=== PATIENT | male | born 1940 | race Caucasian/White ===

== ENCOUNTER → 2017-01-29 | Outpatient (CLI) | payer MEDICARE, MEDICAID ==
[~2017-01-29] MED LIST: 'TENORMIN50 MG PO; ASPIRIN CHEWABL81 M1 PO; CELEBREX100 MG PO; CELEBREX200 MG PO; Carafate1 GM PO; D-1000 185 MG-11 TAB PO; FUROSEMIDE40 MG PO; GAVISCON REGULA1 CT1 PO; ISOSORBIDE DINI30 MG PO; ISOSORBIDE DINITRATE 5 MG PO; LEVAQUIN750 M1 PO; METOPROLOL SUCC50 M2 PO; OMEPRAZOLE D/R20 MG PO; PLAVIX75 MG PO; POTASSIUM CHLO20 MEQ PO; PREDNISONE10 MG PO; PRILOSEC10 MG PO; SIMVASTATIN40 MG PO
== END | disposition home or self-care (01) ==
LOC: US 02:20
DX: R10.10 Upper abdominal pain, unspecified (principal)

== ENCOUNTER → 2017-02-17 | Outpatient (CLI) | payer MEDICARE, MEDICAID | END | disposition home or self-care (01) | LOC: RAD 02-10 08:00 → RAD/SH 08:40 → RAD 09:00 | DX: R13.14 Dysphagia, pharyngoesophageal phase (principal); R10.10 Upper abdominal pain, unspecified ==

== ENCOUNTER → 2017-03-18 | Outpatient (CLI) | payer MEDICARE, MEDICAID | END | disposition home or self-care (01) | LOC: RAD 11:35 | DX: M17.0 Bilateral primary osteoarthritis of knee (principal); M11.262 Other chondrocalcinosis, left knee; M11.261 Other chondrocalcinosis, right knee ==

== ENCOUNTER → 2017-04-01 | Outpatient (CLI) | payer MEDICARE, MEDICAID | END | disposition home or self-care (01) | LOC: MRI 00:26 | DX: S83.242A Other tear of medial meniscus, current injury, left knee, initial encounter (principal); X58.XXXA Exposure to other specified factors, initial encounter; Y93.89 Activity, other specified; Y92.89 Other specified places as the place of occurrence of the external cause; Y99.8 Other external cause status ==

== ENCOUNTER → 2017-05-10 | Outpatient (CLI) | payer MEDICARE, MEDICAID | END | disposition home or self-care (01) | LOC: ORTHO 02:04 | DX: M17.12 Unilateral primary osteoarthritis, left knee (principal); M25.462 Effusion, left knee ==

== ENCOUNTER 2017-05-30 13:37 | Emergency (ER) | payer MEDICARE, MEDICAID ==
[2017-05-30 13:41] VITALS: BP 140/80
[2017-05-30] MEDS ORDERED: HYDROCODONE BIT1 T11 PO (14:27)
== END 2017-05-30 14:47 | disposition home or self-care (01) ==
LOC: ED 13:37
DX: S83.232A Complex tear of medial meniscus, current injury, left knee, initial encounter (principal); Z88.6 Allergy status to analgesic agent; Z79.899 Other long term (current) drug therapy; Z87.891 Personal history of nicotine dependence; X58.XXXA Exposure to other specified factors, initial encounter; Y93.9 Activity, unspecified; Y92.9 Unspecified place or not applicable; Y99.9 Unspecified external cause status

== ENCOUNTER → 2017-06-16 | Outpatient (CLI) | payer MEDICARE, MEDICAID ==
[~2017-06-16] MED LIST changes: +HYDROCODONE BIT1 T11 PO
[2017-06-16 10:46] LABS: BILIRUBIN NEGATIVE (NEGATIVE); BLOOD NEGATIVE (NEGATIVE); CLARITY SL CLOUDY (CLEAR); COLOR YELLOW (YELLOW); GLUCOSE NEGATIVE (NEGATIVE); KETONE NEGATIVE (NEGATIVE); LEUKO ESTERASE TRACE (NEGATIVE); NITRITE NEGATIVE (NEGATIVE); PROTEIN NEGATIVE (NEGATIVE); SPECIFIC GRAVITY 1.015 (1.005-1.030)
[2017-06-16 10:49] LABS: BASO # 0.1 10*3/uL (0.0-0.1); BASO % 0.9 % (0.0-1.0); EOS # 0.2 10*3/uL (0.0-0.4); EOS % 2.5 % (1.0-4.0); HEMATOCRIT 43.6 % (42.0-52.0); HEMOGLOBIN 14.1 g/dl (14.0-18.0); IG # 0.1 10*3/uL (0.0-0.1); LYMPH # 2.3 10*3/uL (1.3-4.4); LYMPH % 23.6 % (27.0-41.0); MEAN CELL VOLUME 89.9 fl (80.0-94.0); MEAN CORPUSCULAR HGB 29.1 pg (27.0-31.0); MEAN CORPUSCULAR HGB CONC 32.3 g/dl (33.0-37.0); MEAN PLATELET VOLUME 9.9 fl (9.6-12.3); MONO # 1.1 10*3/uL (0.1-1.0); MONO % 11.8 % (3.0-9.0); NEUT # 5.9 10*3/uL (2.3-7.9); NEUT % 60.6 % (47.0-73.0); PLATELET COUNT AUTOMATED 329 10*3/uL (130-400); RED BLOOD COUNT 4.85 10*6/uL (4.50-5.90); RED CELL DISTRI WIDTH 14.4 % (0-14.5); WHITE BLOOD COUNT 9.7 10*3/uL (4.8-10.8)
[2017-06-16 11:11] LABS: BACTERIA 1+; WBC 0-2 wbc/hpf (0-5)
[2017-06-16 11:18] LABS: ALBUMIN 3.6 gm/dl (3.1-4.5); BUN 17 mg/dl (7-24); CARBON DIOXIDE 29 mmol/L (21-32); CHLORIDE 108 mmol/L (98-107); EST GLOM FILT AFRICAN AMERICAN > 60 ml/min; GLUCOSE 114 mg/dL (65-99); SGOT/AST 18 IU/L (3-35); SGPT/ALT 20 U/L (12-78); SODIUM 139 mmol/L (136-145)
[2017-06-16 11:20] LABS: ALKALINE PHOSPHATASE 94 U/L (45-117); BILIRUBIN, TOTAL 0.7 mg/dl (0.2-1.0); TOTAL PROTEIN 6.4 gm/dL (6.4-8.2)
== END | disposition home or self-care (01) ==
LOC: LAB 09:17
PROVIDERS: Orthopaedic Surgery
DX: Z01.818 Encounter for other preprocedural examination (principal); S83.242A Other tear of medial meniscus, current injury, left knee, initial encounter; M94.262 Chondromalacia, left knee; Z87.891 Personal history of nicotine dependence; X58.XXXA Exposure to other specified factors, initial encounter; Y93.89 Activity, other specified; Y92.89 Other specified places as the place of occurrence of the external cause; Y99.8 Other external cause status

== ENCOUNTER → 2017-07-13 | Day surgery (SDC) | payer MEDICARE, MEDICAID ==
[2017-06-22 09:47] VITALS: BP 166/97
[~2017-07-13] MED LIST changes: +CIPRO PO; +NORCO 5-325 TA1 EACH PO; +ZOFRAN4 MG PO
[2017-07-13 09:15] VITALS: BP 116/74
[2017-07-13 12:22] VITALS: BP 156/87
[2017-07-13 12:35] VITALS: BP 149/95
[2017-07-13 12:47] VITALS: BP 152/87
[2017-07-13 13:05] VITALS: BP 151/88
[2017-07-13 13:20] VITALS: BP 148/88
== END | disposition home or self-care (01) ==
LOC: SDC 06-10 08:45
DX: S83.282A Other tear of lateral meniscus, current injury, left knee, initial encounter (principal); S83.242A Other tear of medial meniscus, current injury, left knee, initial encounter; K21.9 Gastro-esophageal reflux disease without esophagitis; I11.0 Hypertensive heart disease with heart failure; I50.9 Heart failure, unspecified; J44.9 Chronic obstructive pulmonary disease, unspecified; E78.5 Hyperlipidemia, unspecified; Z95.5 Presence of coronary angioplasty implant and graft; Z80.9 Family history of malignant neoplasm, unspecified; Z82.49 Family history of ischemic heart disease and other diseases of the circulatory system; F17.210 Nicotine dependence, cigarettes, uncomplicated; X58.XXXA Exposure to other specified factors, initial encounter; Y99.8 Other external cause status; Y93.89 Activity, other specified; Y92.89 Other specified places as the place of occurrence of the external cause; Z98.890 Other specified postprocedural states

== ENCOUNTER → 2017-09-28 | Outpatient (CLI) | payer MEDICARE, MEDICAID | END | disposition home or self-care (01) | LOC: US 01:38 | DX: N28.1 Cyst of kidney, acquired (principal); I10 Essential (primary) hypertension ==

== ENCOUNTER → 2017-10-07 | Outpatient (CLI) | payer MEDICARE, MEDICAID | END | disposition home or self-care (01) | LOC: CT 03:18 | DX: Z01.818 Encounter for other preprocedural examination (principal); M17.12 Unilateral primary osteoarthritis, left knee; K40.90 Unilateral inguinal hernia, without obstruction or gangrene, not specified as recurrent; M25.462 Effusion, left knee; M71.22 Synovial cyst of popliteal space [Baker], left knee; M11.262 Other chondrocalcinosis, left knee; M16.12 Unilateral primary osteoarthritis, left hip; Z96.652 Presence of left artificial knee joint ==

== ENCOUNTER → 2017-11-24 | Outpatient (CLI) | payer MEDICARE ==
[~2017-11-24] MED LIST changes: +OMEPRAZOLE40 MG PO
== END ==
LOC: CARD 02:11
DX: I51.7 Cardiomegaly (principal)

== ENCOUNTER → 2017-12-01 | Outpatient (CLI) | payer MEDICARE ==
[~2017-12-01] MED LIST changes: +ADVAIR 250/501 EA INH; +ASPIRIN81 M1 PO; +COMBIVENT RESPIM4 GM INH; +METOPROLOL TART50 M1 PO; +MIRALAX119 GM PO; +NAPROXEN500 MG PO
== END | disposition home or self-care (01) ==
LOC: CARD 00:27
DX: I25.10 Atherosclerotic heart disease of native coronary artery without angina pectoris (principal); R93.1 Abnormal findings on diagnostic imaging of heart and coronary circulation

== ENCOUNTER 2017-12-14 03:30 | Inpatient (IN) | payer MEDICARE ==
[~2017-12-14] VITALS: Ht 175 cm
[2017-12-14] VITALS (9 sets, daily range): BP systolic 88–129; BP diastolic 31–86
[~2017-12-14 03:30] MED LIST changes: -ADVAIR 250/501 EA INH; -ASPIRIN81 M1 PO; -COMBIVENT RESPIM4 GM INH; -METOPROLOL TART50 M1 PO; -MIRALAX119 GM PO; -NAPROXEN500 MG PO
[2017-12-14] MEDS ORDERED: ASPIRIN81 M1 PO (11:29)
[2017-12-14] MEDS ORDERED: MIRALAX119 GM PO (11:30)
[2017-12-14] MEDS ORDERED: ADVAIR 250/501 EA INH (11:31)
[2017-12-14] MEDS ORDERED: COMBIVENT RESPIM4 GM INH (11:31)
[2017-12-14] MEDS ORDERED: NAPROXEN500 MG PO (11:31)
[2017-12-14] MEDS ORDERED: METOPROLOL TART50 M1 PO (11:33)
[2017-12-14 18:50] LABS: BILIRUBIN NEGATIVE (NEGATIVE); BLOOD 3+ (NEGATIVE); CLARITY CLOUDY (CLEAR); COLOR YELLOW (YELLOW); GLUCOSE NEGATIVE (NEGATIVE); KETONE TRACE (NEGATIVE); LEUKO ESTERASE TRACE (NEGATIVE); NITRITE NEGATIVE (NEGATIVE); SPECIFIC GRAVITY >= 1.030 (1.005-1.030); UROBILINOGEN 0.2 E.U./dl (0.2-1.0)
[2017-12-14 19:09] LABS: BACTERIA 1+; RBC TNTC rbc/hpf (0-2)
[2017-12-15] VITALS: BP 139/77
[2017-12-15 04:34] VITALS: BP 134/85
[2017-12-15 07:18] LABS: BASO # 0.1 10*3/uL (0.0-0.1); BASO % 0.5 % (0.0-1.0); EOS # 0.2 10*3/uL (0.0-0.4); EOS % 1.4 % (1.0-4.0); HEMATOCRIT 37.3 % (42.0-52.0); HEMOGLOBIN 12.2 g/dl (14.0-18.0); LYMPH # 1.4 10*3/uL (1.3-4.4); LYMPH % 13.7 % (27.0-41.0); MEAN CELL VOLUME 91.2 fl (80.0-94.0); MEAN CORPUSCULAR HGB 29.8 pg (27.0-31.0); MEAN CORPUSCULAR HGB CONC 32.7 g/dl (33.0-37.0); MEAN PLATELET VOLUME 10.1 fl (9.6-12.3); MONO # 1.4 10*3/uL (0.1-1.0); MONO % 13.9 % (3.0-9.0); NEUT # 7.3 10*3/uL (2.3-7.9); NEUT % 70.1 % (47.0-73.0); PLATELET COUNT AUTOMATED 259 10*3/uL (130-400); RED BLOOD COUNT 4.09 10*6/uL (4.50-5.90); WHITE BLOOD COUNT 10.4 10*3/uL (4.8-10.8)
[2017-12-15 07:59] LABS: ACT PARTIAL THROMBO TIME 27.1 SECONDS (20.8-31.5)
[2017-12-15 08:00] VITALS: BP 136/75
[2017-12-15 08:20] LABS: PHOSPHOROUS 2.3 mg/dL (2.5-4.9); THYROID STIM HORMONE (HS) 0.529 uIU/ml (0.358-4.75)
[2017-12-15 08:53] LABS: VITAMIN D, 25-HYDROXY 10.7 ng/mL (30-100)
[2017-12-15 12:00] VITALS: BP 140/76
[2017-12-15 16:00] VITALS: BP 113/62
[2017-12-15 20:00] VITALS: BP 135/67
[2017-12-16] VITALS: BP 131/69
[2017-12-16 06:17] LABS: HEMATOCRIT 36.5 % (42.0-52.0); HEMOGLOBIN 11.9 g/dl (14.0-18.0); MEAN CELL VOLUME 90.6 fl (80.0-94.0); MEAN CORPUSCULAR HGB 29.5 pg (27.0-31.0); MEAN CORPUSCULAR HGB CONC 32.6 g/dl (33.0-37.0); MEAN PLATELET VOLUME 9.6 fl (9.6-12.3); PLATELET COUNT AUTOMATED 243 10*3/uL (130-400); RED BLOOD COUNT 4.03 10*6/uL (4.50-5.90); RED CELL DISTRI WIDTH 13.8 % (0-14.5); WHITE BLOOD COUNT 9.4 10*3/uL (4.8-10.8)
[2017-12-16 06:45] LABS: BUN 10 mg/dl (7-24); CHLORIDE 103 mmol/L (98-107); CREATININE 0.79 mg/dL (0.70-1.30); POTASSIUM 3.8 mmol/L (3.5-5.1); SODIUM 141 mmol/L (136-145)
[2017-12-16 07:00] VITALS: BP 130/78
[2017-12-16 07:37] LABS: PLATELET SUFFICIENCY NORMAL (NORMAL); TOTAL CELLS COUNTED 100 #CELLS
[2017-12-16 08:00] VITALS: BP 135/85
[2017-12-16 12:00] VITALS: BP 105/66
[2017-12-16 16:00] VITALS: BP 118/68
[2017-12-16 20:00] VITALS: BP 131/73
[2017-12-17] VITALS: BP 129/83
[2017-12-17 07:44] LABS: BASO % 0.5 % (0.0-1.0); EOS # 0.2 10*3/uL (0.0-0.4); EOS % 2.6 % (1.0-4.0); HEMATOCRIT 34.3 % (42.0-52.0); HEMOGLOBIN 11.5 g/dl (14.0-18.0); LYMPH # 1.4 10*3/uL (1.3-4.4); LYMPH % 18.1 % (27.0-41.0); MEAN CELL VOLUME 89.3 fl (80.0-94.0); MEAN CORPUSCULAR HGB 29.9 pg (27.0-31.0); MEAN CORPUSCULAR HGB CONC 33.5 g/dl (33.0-37.0); MEAN PLATELET VOLUME 10.2 fl (9.6-12.3); MONO # 1.2 10*3/uL (0.1-1.0); MONO % 15.5 % (3.0-9.0); NEUT # 4.8 10*3/uL (2.3-7.9); NEUT % 62.6 % (47.0-73.0); PLATELET COUNT AUTOMATED 259 10*3/uL (130-400); RED BLOOD COUNT 3.84 10*6/uL (4.50-5.90); RED CELL DISTRI WIDTH 13.8 % (0-14.5); WHITE BLOOD COUNT 7.7 10*3/uL (4.8-10.8)
[2017-12-17 08:00] VITALS: BP 113/70
[2017-12-17 08:15] LABS: ALBUMIN 2.8 gm/dl (3.1-4.5); BUN 13 mg/dl (7-24); CHLORIDE 102 mmol/L (98-107); POTASSIUM 3.2 mmol/L (3.5-5.1); SGPT/ALT 15 U/L (12-78); SODIUM 140 mmol/L (136-145)
[2017-12-17 08:18] LABS: ALKALINE PHOSPHATASE 78 U/L (45-117); CREATININE 0.67 mg/dL (0.70-1.30); SGOT/AST 21 IU/L (3-35); TOTAL PROTEIN 6.1 gm/dL (6.4-8.2)
[2017-12-17 12:00] VITALS: BP 100/60
[2017-12-17] MEDS ORDERED: VITAMIN D5000 UNIT PO (15:08)
[2017-12-17] MEDS ORDERED: B12100 MC1 PO (15:08)
[2017-12-17] MEDS ORDERED: NATURE'S BLEND F1 MG PO (15:08)
[2017-12-17] MEDS ORDERED: K-TAB10 MEQ PO (15:18)
== END 2017-12-17 15:41 | disposition home health service (06) | DRG 470 ==
LOC: SDC 03:30 → 5E 07:38 → SDC 11:00 → 5E 12:26
PROVIDERS: Hospitalist; Orthopaedic Surgery
PROC: 0SRD0J9 Replacement of Left Knee Joint with Synthetic Substitute, Cemented, Open Approach (ICD-10-PCS; principal; 2017-12-14)
DX: M17.12 Unilateral primary osteoarthritis, left knee (principal); D64.9 Anemia, unspecified; R31.9 Hematuria, unspecified; J43.9 Emphysema, unspecified; M81.0 Age-related osteoporosis without current pathological fracture; I25.10 Atherosclerotic heart disease of native coronary artery without angina pectoris; K21.9 Gastro-esophageal reflux disease without esophagitis; E53.8 Deficiency of other specified B group vitamins; E78.5 Hyperlipidemia, unspecified; E55.9 Vitamin D deficiency, unspecified; D72.810 Lymphocytopenia; E87.6 Hypokalemia; D72.821 Monocytosis (symptomatic); Z87.891 Personal history of nicotine dependence; Z79.51 Long term (current) use of inhaled steroids; Z79.82 Long term (current) use of aspirin; Z79.899 Other long term (current) drug therapy; Z95.5 Presence of coronary angioplasty implant and graft; Z88.8 Allergy status to other drugs, medicaments and biological substances

== ENCOUNTER 2017-12-20 00:47 | Emergency (ER) | payer MEDICARE ==
[~2017-12-20] VITALS: Ht 175.2 cm; Wt 83.9 kg
[~2017-12-20 00:47] MED LIST changes: +ADVAIR 250/501 EA INH; +ASPIRIN81 M1 PO; +B12100 MC1 PO; +COMBIVENT RESPIM4 GM INH; +K-TAB10 MEQ PO; +METOPROLOL TART50 M1 PO; +MIRALAX119 GM PO; +NAPROXEN500 MG PO; +NATURE'S BLEND F1 MG PO; +VITAMIN D5000 UNIT PO
[2017-12-20 00:55] VITALS: BP 144/80
== END 2017-12-20 02:27 | disposition home or self-care (01) ==
LOC: ED 00:47
DX: Z96.652 Presence of left artificial knee joint (principal); K21.9 Gastro-esophageal reflux disease without esophagitis; J45.909 Unspecified asthma, uncomplicated; I25.10 Atherosclerotic heart disease of native coronary artery without angina pectoris; E78.5 Hyperlipidemia, unspecified; E87.6 Hypokalemia; J44.1 Chronic obstructive pulmonary disease with (acute) exacerbation; Z88.5 Allergy status to narcotic agent; Z79.82 Long term (current) use of aspirin; Z79.899 Other long term (current) drug therapy

== ENCOUNTER → 2018-01-25 | Outpatient (CLI) | payer MEDICARE | END | disposition home or self-care (01) | LOC: ORTHO | DX: Z01.818 Encounter for other preprocedural examination (principal); M25.462 Effusion, left knee; Z96.652 Presence of left artificial knee joint; Z98.890 Other specified postprocedural states ==

== ENCOUNTER → 2018-02-02 | Day surgery (SDC) | payer MEDICARE ==
[~2018-02-02] VITALS: Ht 172.7 cm; Wt 79.4 kg
--- NOTE | ~2018-02-02 | O ---
[place], [place] OPERATIVE NOTE NAME: DENISSE MAYER UNIT #: [id number] ROOM: DOCTOR: KELLIE LUKE MD BIRTHDATE: [birth year] DOS: 02/02/2018 HISTORY OF PRESENT ILLNESS: A 78-year-old patient who presented with dyspepsia, undergoing investigation on omeprazole 40 mg daily. ALLERGIES: DILAUDID. FAMILY HISTORY: Noncontributory. PAST SURGICAL HISTORY: Left total knee. PAST MEDICAL HISTORY: Hypercholesterolemia, hypertension. SOCIAL HISTORY: Nonsmoker, nonalcohol consumer. CT scan pending. PROCEDURE: Today's procedure part of investigation is panendoscopy plus biopsy. PREMEDICATION: Versed and Diprivan. SCOPE: Olympus forward-viewing gastroscope Q10 video. REPORT: After putting the patient in left lateral position and application of lubricant to the scope, the scope was entered. Thereafter, under direct visualization, advanced through the length of esophagus without difficulty. Gastric pouch was entered. Evidence of gastritis was seen. Bile reflux noticed. Duodenal bulb, second and third part within normal limits. The patient extubated, tolerated procedure well. IMPRESSION: Gastritis, status post biopsy. Very small hiatal hernia. PLAN AND DISCUSSION: Omeprazole [address] scan of the abdomen is pending. Further workup in progress. Follow up routinely with you in office, p.r.n. visit with us in GI Clinic. Antireflux measure with elevation of the head of the bed 6 inch all time. Clinical reassessment. Thank you very much indeed. [place], [place] OPERATIVE NOTE NAME: DENISSE MAYER UNIT #: [id number] ROOM: DOCTOR: KELLIE LUKE MD BIRTHDATE: [birth year] KELLIE LUKE MD CM:OPRECORD:OPERATIVE NOTE 1205 [id number] VERONICA LUKE MD 02/02/18 1412 interface
[2018-02-02 11:57] VITALS: BP 138/86
[2018-02-02 12:03] VITALS: BP 107/65
[2018-02-02 12:18] VITALS: BP 137/78
[2018-02-02 12:30] VITALS: BP 141/74
== END | disposition home or self-care (01) ==
LOC: SDC 01-27 13:15
DX: K29.50 Unspecified chronic gastritis without bleeding (principal); E78.00 Pure hypercholesterolemia, unspecified; K44.9 Diaphragmatic hernia without obstruction or gangrene; K21.9 Gastro-esophageal reflux disease without esophagitis; I50.9 Heart failure, unspecified; I11.0 Hypertensive heart disease with heart failure; Z95.828 Presence of other vascular implants and grafts; I25.10 Atherosclerotic heart disease of native coronary artery without angina pectoris; J43.9 Emphysema, unspecified; Z98.890 Other specified postprocedural states; Z80.9 Family history of malignant neoplasm, unspecified; Z82.49 Family history of ischemic heart disease and other diseases of the circulatory system; F17.210 Nicotine dependence, cigarettes, uncomplicated

== ENCOUNTER → 2018-02-09 | Outpatient (CLI) | payer MEDICARE | END | disposition home or self-care (01) | LOC: ORTHO 00:24 | DX: Z48.89 Encounter for other specified surgical aftercare (principal); Z96.652 Presence of left artificial knee joint ==

== ENCOUNTER → 2018-03-02 | Outpatient (CLI) | payer MEDICARE ==
[~2018-03-02] MED LIST changes: +GAVISCON ES TA1 EACH PO
== END | disposition home or self-care (01) ==
LOC: ORTHO 01:56 → LAB 09:00 → ORTHO 16:33
DX: M25.062 Hemarthrosis, left knee (principal); Z96.652 Presence of left artificial knee joint

== ENCOUNTER → 2018-03-04 | Day surgery (SDC) | payer MEDICARE ==
[~2018-03-04] VITALS: Ht 172.7 cm; Wt 79.4 kg
--- NOTE | ~2018-03-04 | O ---
[place], [place] OPERATIVE NOTE NAME: DENISSE MAYER UNIT #: [id number] ROOM: DOCTOR: KELLIE LUKE MD BIRTHDATE: [birth year] DOS: 03/04/2018 GASTROENDOSCOPIC REPORT HISTORY OF PRESENT ILLNESS: The patient presented with chief complaint of history of colonic polyp, undergoing investigation. PAST MEDICAL HISTORY: Associated with hyperlipidemia, hypertension, and gastritis. ALLERGIES: DILAUDID. FAMILY HISTORY: Noncontributory. PAST SURGICAL HISTORY: Left total knee. SOCIAL HISTORY: Nonsmoker, nonalcohol consumer. PROCEDURE: Today's procedure part of investigation is colonoscopy plus piecemeal polypectomy. PREMEDICATION: Versed and propofol. SCOPE: Olympus forward-viewing colonoscope 10L video. REPORT: After putting the patient in left lateral position and application of lubricant to the scope, the scope was introduced. Thereafter, under direct visualization, advanced through the length of colon without difficulty. Base of the cecum explored, appendiceal orifice identified, ileocecal valve was defined. Cecal sessile small polyp with piecemeal polypectomy removed. Air was suctioned out. Rare diverticulosis in sigmoid colon identified as well as diverticulosis isolated at the cecum was identified, photographed. Air was suctioned out. The patient was extubated, tolerated the procedure well. IMPRESSION: Diverticulosis with presence of diverticulum in the cecum as well as a sessile polypoid lesion in the cecum, status post piecemeal polypectomy. PLAN: High fiber fruit diet. ACTIVITY: Ad soraya. FOLLOWUP: Routinely with you in office, p.r.n. visit with us in GI Clinic. Thank you very much indeed for your kind referral. [place], [place] OPERATIVE NOTE NAME: DENISSE MAYER Taye UNIT #: [id number] ROOM: DOCTOR: KELLIE LUKE MD BIRTHDATE: [birth year] KELLIE LUKE MD CM:OPRECORD:OPERATIVE NOTE 1215 [id number] KELLIE LUKE MD 03/10/18 1646 interface
[2018-03-04 10:30] VITALS: BP 131/74
[2018-03-04 12:12] VITALS: BP 102/64
[2018-03-04 12:30] VITALS: BP 122/70
[2018-03-04 12:41] VITALS: BP 137/84
[2018-03-04 12:42] VITALS: BP 137/84
== END | disposition home or self-care (01) ==
LOC: SDC 02-28 08:45
DX: K57.30 Diverticulosis of large intestine without perforation or abscess without bleeding (principal); D12.0 Benign neoplasm of cecum; Z86.010 Personal history of colon polyps; E78.5 Hyperlipidemia, unspecified; Z88.8 Allergy status to other drugs, medicaments and biological substances; I11.0 Hypertensive heart disease with heart failure; I50.9 Heart failure, unspecified; K21.9 Gastro-esophageal reflux disease without esophagitis; J44.9 Chronic obstructive pulmonary disease, unspecified; Z79.899 Other long term (current) drug therapy; Z95.5 Presence of coronary angioplasty implant and graft; I25.10 Atherosclerotic heart disease of native coronary artery without angina pectoris; Z98.890 Other specified postprocedural states

== ENCOUNTER → 2018-03-07 | Outpatient (CLI) | payer MEDICARE ==
[2018-03-07 17:05] LABS: ALBUMIN 3.1 gm/dl (3.1-4.5)
== END | disposition home or self-care (01) ==
LOC: LAB 02:46 → ORTHO 02:46
PROVIDERS: Orthopaedic Surgery
DX: E46 Unspecified protein-calorie malnutrition (principal)

== ENCOUNTER → 2018-04-12 | Outpatient (CLI) | payer MEDICARE ==
[2018-04-12 11:09] LABS: BILIRUBIN NEGATIVE (NEGATIVE); BLOOD NEGATIVE (NEGATIVE); COLOR YELLOW (YELLOW); GLUCOSE NEGATIVE (NEGATIVE); KETONE TRACE (NEGATIVE); LEUKO ESTERASE NEGATIVE (NEGATIVE); NITRITE NEGATIVE (NEGATIVE); SPECIFIC GRAVITY 1.025 (1.005-1.030); UROBILINOGEN 0.2 E.U./dl (0.2-1.0)
[2018-04-12 11:18] LABS: BASO # 0.1 10*3/uL (0.0-0.1); BASO % 0.8 % (0.0-1.0); EOS # 0.3 10*3/uL (0.0-0.4); EOS % 2.5 % (1.0-4.0); HEMOGLOBIN 12.8 g/dl (14.0-18.0); LYMPH # 1.6 10*3/uL (1.3-4.4); LYMPH % 15.6 % (27.0-41.0); MEAN CELL VOLUME 86.2 fl (80.0-94.0); MEAN CORPUSCULAR HGB 26.3 pg (27.0-31.0); MEAN CORPUSCULAR HGB CONC 30.5 g/dl (33.0-37.0); MEAN PLATELET VOLUME 9.1 fl (9.6-12.3); MONO # 1.3 10*3/uL (0.1-1.0); MONO % 12.4 % (3.0-9.0); NEUT % 68.2 % (47.0-73.0); PLATELET COUNT AUTOMATED 497 10*3/uL (130-400); RED BLOOD COUNT 4.87 10*6/uL (4.50-5.90); RED CELL DISTRI WIDTH 15.8 % (0-14.5); WHITE BLOOD COUNT 10.3 10*3/uL (4.8-10.8)
[2018-04-12 11:37] LABS: ALBUMIN 3.4 gm/dl (3.1-4.5); ALKALINE PHOSPHATASE 118 U/L (45-117); BUN 20 mg/dl (7-24); CHLORIDE 106 mmol/L (98-107); CREATININE 0.79 mg/dL (0.70-1.30); POTASSIUM 3.9 mmol/L (3.5-5.1); SGOT/AST 18 IU/L (3-35); SGPT/ALT 17 U/L (12-78); SODIUM 143 mmol/L (136-145); TOTAL PROTEIN 7.7 gm/dL (6.4-8.2)
[2018-04-12 11:48] LABS: CLARITY SL CLOUDY (CLEAR)
[2018-04-12 11:51] LABS: BACTERIA TRACE; CALCIUM OXALATE CRYSTALS 1+; MUCOUS 3+; RBC 0-2 rbc/hpf (0-2)
== END | disposition home or self-care (01) ==
LOC: LAB 09:29
PROVIDERS: Orthopaedic Surgery
DX: Z01.818 Encounter for other preprocedural examination (principal); J98.4 Other disorders of lung; J44.9 Chronic obstructive pulmonary disease, unspecified; I10 Essential (primary) hypertension

== ENCOUNTER → 2018-04-21 | Outpatient (CLI) | payer MEDICARE | END | disposition home or self-care (01) | LOC: LAB 07:43 | DX: M17.12 Unilateral primary osteoarthritis, left knee (principal) ==

== ENCOUNTER → 2018-04-27 | Outpatient (CLI) | payer MEDICARE | END | disposition home or self-care (01) | LOC: ORTHO 00:01 | DX: M25.062 Hemarthrosis, left knee (principal) ==

== ENCOUNTER → 2018-05-03 | Outpatient (CLI) | payer MEDICARE ==
[2018-05-03 13:58] LABS: BASO # 0.1 10*3/uL (0.0-0.1); BASO % 0.7 % (0.0-1.0); EOS # 0.2 10*3/uL (0.0-0.4); EOS % 1.9 % (1.0-4.0); HEMATOCRIT 35.3 % (42.0-52.0); HEMOGLOBIN 10.6 g/dl (14.0-18.0); LYMPH % 16.5 % (27.0-41.0); MEAN CELL VOLUME 88.3 fl (80.0-94.0); MEAN CORPUSCULAR HGB 26.5 pg (27.0-31.0); MEAN PLATELET VOLUME 9.2 fl (9.6-12.3); MONO # 1.3 10*3/uL (0.1-1.0); MONO % 10.8 % (3.0-9.0); NEUT # 8.3 10*3/uL (2.3-7.9); NEUT % 69.4 % (47.0-73.0); PLATELET COUNT AUTOMATED 479 10*3/uL (130-400); RED CELL DISTRI WIDTH 18.3 % (0-14.5)
== END | disposition home or self-care (01) ==
LOC: LAB 08:04 → ORTHO 08:04
PROVIDERS: Orthopaedic Surgery
DX: M25.062 Hemarthrosis, left knee (principal)

== ENCOUNTER 2018-05-16 17:47 | Emergency (ER) | payer MEDICARE ==
[~2018-05-16] VITALS: Ht 172.7 cm; Wt 74.8 kg
[2018-05-16 18:38] LABS: BASO # 0.1 10*3/uL (0.0-0.1); BASO % 0.8 % (0.0-1.0); EOS # 0.1 10*3/uL (0.0-0.4); EOS % 1.4 % (1.0-4.0); LYMPH # 1.4 10*3/uL (1.3-4.4); LYMPH % 15.3 % (27.0-41.0); MEAN CELL VOLUME 85.5 fl (80.0-94.0); MEAN CORPUSCULAR HGB 26.1 pg (27.0-31.0); MEAN CORPUSCULAR HGB CONC 30.6 g/dl (33.0-37.0); MEAN PLATELET VOLUME 8.9 fl (9.6-12.3); MONO # 1.1 10*3/uL (0.1-1.0); MONO % 12.2 % (3.0-9.0); NEUT # 6.5 10*3/uL (2.3-7.9); PLATELET COUNT AUTOMATED 436 10*3/uL (130-400); RED BLOOD COUNT 4.21 10*6/uL (4.50-5.90); RED CELL DISTRI WIDTH 17.1 % (0-14.5); WHITE BLOOD COUNT 9.2 10*3/uL (4.8-10.8)
[2018-05-16 18:58] LABS: ALBUMIN 3.4 gm/dl (3.1-4.5); ALKALINE PHOSPHATASE 120 U/L (45-117); BUN 16 mg/dl (7-24); CHLORIDE 106 mmol/L (98-107); CREATININE 0.85 mg/dL (0.70-1.30); POTASSIUM 3.3 mmol/L (3.5-5.1); SGOT/AST 6 IU/L (3-35); SGPT/ALT 11 U/L (12-78); SODIUM 141 mmol/L (136-145); TOTAL PROTEIN 7.2 gm/dL (6.4-8.2)
[2018-05-16 21:35] VITALS: BP 128/67
== END 2018-05-16 21:40 | disposition short-term general hospital (02) ==
LOC: ED 17:47
PROVIDERS: Nurse Practitioner Family
DX: M00.9 Pyogenic arthritis, unspecified (principal); I25.10 Atherosclerotic heart disease of native coronary artery without angina pectoris; J44.9 Chronic obstructive pulmonary disease, unspecified; K21.9 Gastro-esophageal reflux disease without esophagitis; E78.5 Hyperlipidemia, unspecified; M81.0 Age-related osteoporosis without current pathological fracture; Z87.891 Personal history of nicotine dependence; Z88.8 Allergy status to other drugs, medicaments and biological substances; Z79.899 Other long term (current) drug therapy; Z79.82 Long term (current) use of aspirin

== ENCOUNTER → 2018-11-03 | Outpatient (CLI) | payer OTHER | END | disposition home or self-care (01) | LOC: US 14:49 | DX: M79.89 Other specified soft tissue disorders (principal) ==

== ENCOUNTER → 2021-01-10 | Outpatient (CLI) | payer MEDICARE | END | disposition home or self-care (01) | LOC: COVID19 10:02 | PROVIDERS: ATTEND Physician Assistant | DX: Z01.818 Encounter for other preprocedural examination (principal); Z20.822 Contact with and (suspected) exposure to COVID-19 ==

== ENCOUNTER → 2021-11-13 | Outpatient (CLI) | payer MEDICARE ==
[2021-11-13 14:41] LABS: CREATININE 1.15 mg/dL (0.70-1.30)
== END | disposition home or self-care (01) ==
LOC: LAB 14:07 → CT 15:00
PROVIDERS: Radiology Diagnostic Radiology; ATTEND Radiology Radiation Oncology
DX: M50.31 Other cervical disc degeneration, high cervical region (principal); M45.2 Ankylosing spondylitis of cervical region

== ENCOUNTER 2021-11-15 16:55 | Emergency (ER) | payer MEDICARE ==
[~2021-11-15] VITALS: Ht 172.7 cm; Wt 77.1 kg
[2021-11-15 17:03] VITALS: BP 128/64
[2021-11-15 17:24] LABS: BASO # 0.1 10*3/uL (0.0-0.1); BASO % 0.9 % (0.0-1.0); EOS # 0.3 10*3/uL (0.0-0.4); EOS % 4.5 % (1.0-4.0); LYMPH # 1.6 10*3/uL (1.3-4.4); LYMPH % 24.2 % (27.0-41.0); MEAN CELL VOLUME 91.9 fl (80.0-94.0); MEAN CORPUSCULAR HGB 29.4 pg (27.0-31.0); MEAN PLATELET VOLUME 9.5 fl (9.6-12.3); MONO # 0.8 10*3/uL (0.1-1.0); MONO % 11.3 % (3.0-9.0); NEUT % 58.8 % (47.0-73.0); PLATELET COUNT AUTOMATED 298 10*3/uL (130-400); RED BLOOD COUNT 4.46 10*6/uL (4.50-5.90); RED CELL DISTRI WIDTH 13.5 % (0-14.5); WHITE BLOOD COUNT 6.7 10*3/uL (4.8-10.8)
[2021-11-15 17:42] LABS: ALBUMIN 3.5 gm/dl (3.1-4.5); ALKALINE PHOSPHATASE 108 U/L (45-117); BUN 18 mg/dl (7-24); CHLORIDE 111 mmol/L (98-107); CREATININE 0.81 mg/dL (0.70-1.30); SGOT/AST 11 IU/L (3-35); SGPT/ALT 17 U/L (12-78); SODIUM 143 mmol/L (136-145); TOTAL PROTEIN 6.5 gm/dL (6.4-8.2)
== END 2021-11-15 18:52 | disposition home or self-care (01) ==
LOC: ED 16:55
PROVIDERS: Student in an Organized Health Care Education/Training Program
DX: R04.2 Hemoptysis (principal); Z88.8 Allergy status to other drugs, medicaments and biological substances; Z79.899 Other long term (current) drug therapy; Z79.82 Long term (current) use of aspirin; Z87.891 Personal history of nicotine dependence

== ENCOUNTER → 2022-03-10 | Outpatient (CLI) | payer MEDICARE | END | disposition home or self-care (01) | LOC: LAB 12:00 | PROVIDERS: ATTEND Internal Medicine Gastroenterology | DX: K58.0 Irritable bowel syndrome with diarrhea (principal) ==

== ENCOUNTER → 2022-03-11 | Outpatient (CLI) | payer MEDICARE ==
[2022-03-11 09:27] LABS: HEMATOCRIT 42.3 % (42.0-52.0); MEAN CELL VOLUME 89.8 fl (80.0-94.0); MEAN CORPUSCULAR HGB 28.5 pg (27.0-31.0); MEAN CORPUSCULAR HGB CONC 31.7 g/dl (33.0-37.0); MEAN PLATELET VOLUME 9.1 fl (9.6-12.3); RED BLOOD COUNT 4.71 10*6/uL (4.50-5.90); RED CELL DISTRI WIDTH 13.3 % (0-14.5); WHITE BLOOD COUNT 6.9 10*3/uL (4.8-10.8)
[2022-03-11 09:52] LABS: ALKALINE PHOSPHATASE 120 U/L (45-117); BUN 18 mg/dl (7-24); CHLORIDE 110 mmol/L (98-107); CREATININE 0.76 mg/dL (0.70-1.30); POTASSIUM 3.7 mmol/L (3.5-5.1); SGOT/AST 11 IU/L (3-35); SGPT/ALT 17 U/L (12-78); SODIUM 142 mmol/L (136-145)
== END | disposition home or self-care (01) ==
LOC: LAB 08:45
PROVIDERS: Nurse Practitioner Family; ATTEND Internal Medicine Gastroenterology
DX: K58.0 Irritable bowel syndrome with diarrhea (principal)

== ENCOUNTER → 2022-10-14 | Outpatient (CLI) | payer MEDICARE | END | disposition home or self-care (01) | LOC: MRI 08:28 | PROVIDERS: ATTEND Physician Assistant | DX: I67.82 Cerebral ischemia (principal); H53.2 Diplopia ==

== ENCOUNTER → 2022-10-21 | Outpatient (CLI) | payer MEDICARE | END | disposition home or self-care (01) | LOC: LAB 08:08 | PROVIDERS: ATTEND Physician Assistant | DX: H53.2 Diplopia (principal) ==

== ENCOUNTER → 2022-11-30 | Outpatient (CLI) | payer MEDICARE | END | disposition home or self-care (01) | LOC: US 03:51 | PROVIDERS: ATTEND Internal Medicine | DX: H34.211 Partial retinal artery occlusion, right eye (principal); I65.23 Occlusion and stenosis of bilateral carotid arteries; E78.5 Hyperlipidemia, unspecified ==

== ENCOUNTER → 2023-04-14 | Outpatient (CLI) | payer MEDICARE ==
[2023-04-14 12:17] LABS: HEMATOCRIT 40.4 % (42.0-52.0); MEAN CELL VOLUME 91.2 fl (80.0-94.0); MEAN CORPUSCULAR HGB 29.8 pg (27.0-31.0); MEAN CORPUSCULAR HGB CONC 32.7 g/dl (33.0-37.0); MEAN PLATELET VOLUME 9.2 fl (9.6-12.3); RED BLOOD COUNT 4.43 10*6/uL (4.50-5.90); RED CELL DISTRI WIDTH 13.7 % (0-14.5); WHITE BLOOD COUNT 8.4 10*3/uL (4.8-10.8)
== END | disposition home or self-care (01) ==
LOC: LAB 12:03
PROVIDERS: ATTEND Physician Assistant
DX: K21.9 Gastro-esophageal reflux disease without esophagitis (principal); I48.91 Unspecified atrial fibrillation; K92.2 Gastrointestinal hemorrhage, unspecified; G89.29 Other chronic pain; Z96.652 Presence of left artificial knee joint

== ENCOUNTER → 2023-06-04 | Outpatient (CLI) | payer MEDICARE | END | disposition home or self-care (01) | LOC: US 01:40 | PROVIDERS: ATTEND Internal Medicine Gastroenterology | DX: N28.1 Cyst of kidney, acquired (principal) ==

== ENCOUNTER 2023-06-17 17:24 | Emergency (ER) | payer MEDICARE ==
[~2023-06-17] VITALS: Ht 172.7 cm; Wt 79.8 kg
[2023-06-17 17:41] VITALS: BP 103/71
[2023-06-17] MEDS ORDERED: HYDROCODONE-AC1 EAC1 PO (17:45)
[2023-06-17] MEDS ORDERED: ONDANSETRON HYDR4 MG PO (17:45)
[2023-06-17] MEDS ORDERED: PROPAFENONE HC150 MG PO (17:46)
[2023-06-17] MEDS ORDERED: OMEPRAZOLE40 MG PO (17:46)
[2023-06-17] MEDS ORDERED: ATORVASTATIN CA80 M1 PO (17:46)
[2023-06-17] MEDS ORDERED: CARVEDILOL6.25 MG PO (17:46)
[2023-06-17] MEDS ORDERED: POTASSIUM CHLO20 ME4 PO (17:46)
[2023-06-17] MEDS ORDERED: FUROSEMIDE20 M1 PO (17:47)
[2023-06-17] MEDS ORDERED: XARELTO10 MG PO (17:47)
[2023-06-17 18:21] LABS: BASO # 0.1 10*3/uL (0.0-0.1); BASO % 0.7 % (0.0-1.0); EOS # 0.3 10*3/uL (0.0-0.4); EOS % 4.3 % (1.0-4.0); HEMATOCRIT 40.3 % (42.0-52.0); LYMPH # 1.7 10*3/uL (1.3-4.4); LYMPH % 22.3 % (27.0-41.0); MEAN CORPUSCULAR HGB 29.6 pg (27.0-31.0); MEAN CORPUSCULAR HGB CONC 32.5 g/dl (33.0-37.0); MEAN PLATELET VOLUME 9.7 fl (9.6-12.3); MONO % 12.7 % (3.0-9.0); NEUT # 4.5 10*3/uL (2.3-7.9); NEUT % 59.7 % (47.0-73.0); PLATELET COUNT AUTOMATED 275 10*3/uL (130-400); RED BLOOD COUNT 4.43 10*6/uL (4.50-5.90); RED CELL DISTRI WIDTH 13.6 % (0-14.5); WHITE BLOOD COUNT 7.5 10*3/uL (4.8-10.8)
[2023-06-17 18:32] LABS: INTERNATIONAL NORM RATIO 1.1 (2.0-3.5)
[2023-06-17 18:43] LABS: ALKALINE PHOSPHATASE 122 U/L (46-116); BUN 13 mg/dl (9-23); CHLORIDE 105 mmol/L (98-107); SGPT/ALT 11 U/L (10-49); TOTAL PROTEIN 6.3 gm/dL (6.0-8.0)
[2023-06-17] MEDS ORDERED: AMOX-CLAV 875-1 EACH PO ×2 (18:51→19:17)
== END 2023-06-17 19:02 | disposition home or self-care (01) ==
LOC: ED 17:24
PROVIDERS: Internal Medicine
DX: R04.2 Hemoptysis (principal); J18.9 Pneumonia, unspecified organism; K21.9 Gastro-esophageal reflux disease without esophagitis; I11.0 Hypertensive heart disease with heart failure; I50.9 Heart failure, unspecified; J44.9 Chronic obstructive pulmonary disease, unspecified; I25.10 Atherosclerotic heart disease of native coronary artery without angina pectoris; E78.5 Hyperlipidemia, unspecified; Z88.5 Allergy status to narcotic agent; Z98.890 Other specified postprocedural states; Z95.5 Presence of coronary angioplasty implant and graft; Z96.652 Presence of left artificial knee joint; Z87.891 Personal history of nicotine dependence

== ENCOUNTER → 2023-12-31 | Outpatient (CLI) | payer MEDICARE ==
[~2023-12-31] MED LIST changes: +AMOX-CLAV 875-1 EACH PO; +ATORVASTATIN CA80 M1 PO; +CARVEDILOL6.25 MG PO; +FUROSEMIDE20 M1 PO; +HYDROCODONE-AC1 EAC1 PO; +ONDANSETRON HYDR4 MG PO; +POTASSIUM CHLO20 ME4 PO; +PROPAFENONE HC150 MG PO; +XARELTO10 MG PO
== END | disposition home or self-care (01) ==
LOC: US 01:44
PROVIDERS: ATTEND Physician Assistant
DX: I70.213 Atherosclerosis of native arteries of extremities with intermittent claudication, bilateral legs (principal); I25.10 Atherosclerotic heart disease of native coronary artery without angina pectoris; I10 Essential (primary) hypertension; E11.9 Type 2 diabetes mellitus without complications; M79.605 Pain in left leg; M79.604 Pain in right leg; Z95.828 Presence of other vascular implants and grafts

== ENCOUNTER 2024-07-13 14:49 | Inpatient (IN) | payer MEDICARE ==
[~2024-07-13] VITALS: Ht 167.6 cm; Wt 75.9 kg
[2024-07-13 15:10] VITALS: BP 138/114
[2024-07-13 15:30] VITALS: BP 110/67
[2024-07-13] MEDS ORDERED: Albuterol Sulf/Ipratropium 3 ML VIAL NEB ONE (15:30)
[2024-07-13] MEDS ORDERED: methylPREDNISolone sod succ 125 MG VIAL IV ONE (15:30)
[2024-07-13] MEDS ORDERED: ISOSORBIDE DINIT5 M2 PO (15:33)
[2024-07-13] MEDS ORDERED: PROPAFENONE HY150 MG PO (15:33)
[2024-07-13] MEDS ORDERED: LASIX20 MG PO (15:34)
[2024-07-13] MEDS ORDERED: LIPITOR80 MG PO (15:34)
[2024-07-13] MEDS ORDERED: Ondansetron4 MG PO (15:35)
[2024-07-13] MEDS ORDERED: K-TAB20 MEQ PO (15:35)
[2024-07-13] MEDS ORDERED: HYDROCODONE-AC1 EAC1 PO (15:36)
[2024-07-13] MEDS ORDERED: MECLIZINE HYD12.5 MG PO (15:36)
[2024-07-13 15:43] LABS: BASO # 0.1 10*3/uL (0.0-0.1); BASO % 0.8 % (0.0-1.0); EOS # 0.1 10*3/uL (0.0-0.4); EOS % 1.1 % (1.0-4.0); HEMATOCRIT 42.2 % (42.0-52.0); LYMPH # 0.7 10*3/uL (1.3-4.4); LYMPH % 11.1 % (27.0-41.0); MEAN CELL VOLUME 90.8 fl (80.0-94.0); MEAN CORPUSCULAR HGB 29.2 pg (27.0-31.0); MEAN CORPUSCULAR HGB CONC 32.2 g/dl (33.0-37.0); MEAN PLATELET VOLUME 9.3 fl (9.6-12.3); MONO # 0.7 10*3/uL (0.1-1.0); MONO % 10.6 % (3.0-9.0); NEUT # 4.9 10*3/uL (2.3-7.9); NEUT % 76.1 % (47.0-73.0); PLATELET COUNT AUTOMATED 268 10*3/uL (130-400); RED BLOOD COUNT 4.65 10*6/uL (4.50-5.90); RED CELL DISTRI WIDTH 13.6 % (0-14.5); WHITE BLOOD COUNT 6.5 10*3/uL (4.8-10.8)
[2024-07-13 16:02] LABS: BUN 14 mg/dl (9-23); CHLORIDE 107 mmol/L (98-107); POTASSIUM 3.5 mmol/L (3.4-5.1)
[2024-07-13] MEDS ORDERED: Ceftriaxone Sodium 1 GM/10 ML SYR IV ONE (17:20)
[2024-07-13] MEDS ORDERED: AZITHROMYCIN 250 ML IV ONE (17:20)
[2024-07-13 17:41] VITALS: BP 109/70
[2024-07-13] MEDS ORDERED: ACETAMINOPHEN 650 MG SUPP R PRN (18:30)
[2024-07-13] MEDS ORDERED: BISACODYL 10 MG SUPP R PRN (18:30)
[2024-07-13] MEDS ORDERED: ACETAMINOPHEN 325 MG TAB PO PRN (18:30)
[2024-07-13] MEDS ORDERED: Magnesium Hydroxide 30 ML UDC PO PRN (18:30)
[2024-07-13] MEDS ORDERED: Ondansetron Hydrochloride 4 MG/2 ML VIAL IV PRN (18:30)
[2024-07-13] MEDS ORDERED: BISACODYL 5 MG TAB PO PRN (18:30)
[2024-07-13] MEDS ORDERED: IMDUR SA30 MG PO (19:39)
[2024-07-13] MEDS ORDERED: Meclizine Hydrochloride 12.5 MG TAB PO PRN (19:40)
[2024-07-13 20:00] VITALS: BP 109/70
[2024-07-13] MEDS ORDERED: Acetaminophen/Hydrocodone 5 MG/325 MG TABLET PO PRN (21:20)
[2024-07-13] MEDS ORDERED: ATORVASTATIN CALCIUM 80 MG TAB PO SCH (22:00)
[2024-07-13] MEDS ORDERED: Propafenone Hydrochloride 150 MG TAB PO SCH (22:00)
[2024-07-14] VITALS: BP 107/72
[2024-07-14] MEDS ORDERED: OMEPRAZOLE 20 MG CAP PO SCH (06:00)
[2024-07-14 06:17] LABS: BASO % 0.2 % (0.0-1.0); HEMATOCRIT 42.6 % (42.0-52.0); LYMPH # 0.6 10*3/uL (1.3-4.4); LYMPH % 13.9 % (27.0-41.0); MEAN CELL VOLUME 90.3 fl (80.0-94.0); MEAN CORPUSCULAR HGB 29.7 pg (27.0-31.0); MEAN CORPUSCULAR HGB CONC 32.9 g/dl (33.0-37.0); MONO # 0.2 10*3/uL (0.1-1.0); MONO % 4.4 % (3.0-9.0); NEUT # 3.7 10*3/uL (2.3-7.9); NEUT % 81.3 % (47.0-73.0); PLATELET COUNT AUTOMATED 283 10*3/uL (130-400); RED BLOOD COUNT 4.72 10*6/uL (4.50-5.90); RED CELL DISTRI WIDTH 13.6 % (0-14.5); WHITE BLOOD COUNT 4.6 10*3/uL (4.8-10.8)
[2024-07-14 06:25] LABS: ALKALINE PHOSPHATASE 130 U/L (46-116); BUN 13 mg/dl (9-23); CHLORIDE 108 mmol/L (98-107); FREE T4 1.34 ng/dl (0.89-1.76); POTASSIUM 4.1 mmol/L (3.4-5.1); SGPT/ALT 12 U/L (5-49); TOTAL PROTEIN 6.3 gm/dL (6.0-8.0)
[2024-07-14] MEDS ORDERED: Propafenone Hydrochloride 150 MG TAB PO SCH (08:00)
[2024-07-14] MEDS ORDERED: ISOSORBIDE MONONITRATE 30 MG TAB PO SCH ×2 (08:00→10:00)
[2024-07-14 08:16] VITALS: BP 136/77
[2024-07-14] MEDS ORDERED: POTASSIUM CHLORIDE 20 MEQ TAB PO SCH (10:00)
[2024-07-14] MEDS ORDERED: FUROSEMIDE 20 MG TAB PO SCH (10:00)
[2024-07-14] MEDS ORDERED: Enoxaparin Sodium 40 MG/0.4 ML SYR SC SCH (10:00)
[2024-07-14 12:00] VITALS: BP 117/69
[2024-07-14] MEDS ORDERED: Ampicillin Sodium/Sulbactam 1.5 GM in SODIUM CHLORIDE 0.9% 50 ML IV SCH (12:00)
[2024-07-14] MEDS ORDERED: RIVAROXABAN 20 MG TAB PO SCH ×2 (18:00→22:00)
[2024-07-14 20:00] VITALS: BP 157/70
[2024-07-15] VITALS: BP 137/65
[2024-07-15 06:02] LABS: HEMATOCRIT 39.6 % (42.0-52.0); MEAN CELL VOLUME 89.4 fl (80.0-94.0); MEAN CORPUSCULAR HGB 29.6 pg (27.0-31.0); MEAN CORPUSCULAR HGB CONC 33.1 g/dl (33.0-37.0); MEAN PLATELET VOLUME 9.9 fl (9.6-12.3); PLATELET COUNT AUTOMATED 277 10*3/uL (130-400); RED BLOOD COUNT 4.43 10*6/uL (4.50-5.90); RED CELL DISTRI WIDTH 13.8 % (0-14.5)
[2024-07-15 06:04] LABS: MANUAL DIFF REFLEX YES
[2024-07-15 06:59] LABS: BUN 19 mg/dl (9-23); CHLORIDE 109 mmol/L (98-107); POTASSIUM 3.4 mmol/L (3.4-5.1)
[2024-07-15 07:25] LABS: PLATELET SUFFICIENCY NORMAL (NORMAL); TOTAL CELLS COUNTED 100 #CELLS
[2024-07-15 08:00] VITALS: BP 155/72
[2024-07-15] MEDS ORDERED: AMOX-CLAV 875-1 EACH PO ×2 (11:20→13:08)
[2024-07-15 12:00] VITALS: BP 137/67
== END 2024-07-15 13:38 | disposition home or self-care (01) | DRG 177 ==
LOC: ED 14:49 → EDHOLD 17:53 → 4E 07-14 14:17
PROVIDERS: Internal Medicine; Nurse Practitioner Family; Student in an Organized Health Care Education/Training Program; ADMIT Family Medicine; ATTEND Family Medicine
DX: J69.0 Pneumonitis due to inhalation of food and vomit (principal); I50.31 Acute diastolic (congestive) heart failure; I48.20 Chronic atrial fibrillation, unspecified; K21.9 Gastro-esophageal reflux disease without esophagitis; J43.8 Other emphysema; J44.9 Chronic obstructive pulmonary disease, unspecified; M81.0 Age-related osteoporosis without current pathological fracture; E78.2 Mixed hyperlipidemia; I25.10 Atherosclerotic heart disease of native coronary artery without angina pectoris; E55.9 Vitamin D deficiency, unspecified; D64.9 Anemia, unspecified; Z88.6 Allergy status to analgesic agent; Z87.891 Personal history of nicotine dependence; Z95.5 Presence of coronary angioplasty implant and graft

== ENCOUNTER → 2024-08-10 | Outpatient (CLI) | payer MEDICARE ==
[~2024-08-10] MED LIST changes: +IMDUR SA30 MG PO; +ISOSORBIDE DINIT5 M2 PO; +K-TAB20 MEQ PO; +LASIX20 MG PO; +LIPITOR80 MG PO; +MECLIZINE HYD12.5 MG PO; +Ondansetron4 MG PO; +PROPAFENONE HY150 MG PO
== END | disposition home or self-care (01) ==
LOC: US 01:41
PROVIDERS: ATTEND Internal Medicine Gastroenterology
DX: N28.1 Cyst of kidney, acquired (principal); K76.0 Fatty (change of) liver, not elsewhere classified; R11.0 Nausea

== ENCOUNTER → 2024-09-11 | Outpatient (CLI) | payer MEDICARE | END | disposition home or self-care (01) | LOC: NM 07:00 | PROVIDERS: ATTEND Internal Medicine Gastroenterology | DX: R11.0 Nausea (principal) ==

== ENCOUNTER 2025-03-17 08:59 | Emergency (ER) | payer MEDICARE ==
[~2025-03-17] VITALS: Ht 172.7 cm; Wt 73.9 kg
[2025-03-17 09:11] VITALS: BP 127/75
[2025-03-17 09:53] LABS: BASO % 0.5 % (0.0-1.0); EOS # 0.3 10*3/uL (0.0-0.4); EOS % 3.6 % (1.0-4.0); HEMATOCRIT 37.3 % (42.0-52.0); MEAN CELL VOLUME 90.5 fl (80.0-94.0); MEAN CORPUSCULAR HGB 28.2 pg (27.0-31.0); MEAN CORPUSCULAR HGB CONC 31.1 g/dl (33.0-37.0); MEAN PLATELET VOLUME 8.9 fl (9.6-12.3); MONO % 12.2 % (3.0-9.0); NEUT # 5.8 10*3/uL (2.3-7.9); NEUT % 68.6 % (47.0-73.0); PLATELET COUNT AUTOMATED 374 10*3/uL (130-400); RED BLOOD COUNT 4.12 10*6/uL (4.50-5.90); RED CELL DISTRI WIDTH 14.4 % (0-14.5); WHITE BLOOD COUNT 8.4 10*3/uL (4.8-10.8)
[2025-03-17 10:11] LABS: BUN 14 mg/dl (9-23); CHLORIDE 105 mmol/L (98-107)
[2025-03-17] MEDS ORDERED: VISTARIL25 MG PO (10:27)
== END 2025-03-17 10:31 | disposition home or self-care (01) ==
LOC: ED 08:59
PROVIDERS: Internal Medicine
DX: L29.9 Pruritus, unspecified (principal); F41.9 Anxiety disorder, unspecified; Z88.6 Allergy status to analgesic agent; Z79.899 Other long term (current) drug therapy; Z98.890 Other specified postprocedural states; Z96.652 Presence of left artificial knee joint; Z87.891 Personal history of nicotine dependence

== ENCOUNTER 2025-08-04 10:11 | Inpatient (IN) | payer MEDICARE, MEDICAID ==
[2025-08-04] VITALS (8 sets, daily range): BP systolic 93–120; BP diastolic 53–88
[~2025-08-04] VITALS: Ht 172.7 cm; Wt 72.6 kg
[~2025-08-04 10:11] MED LIST changes: +DOXYCYCLINE HY100 M3 PO; +VISTARIL25 MG PO
[2025-08-04] MEDS ORDERED: Ondansetron Hydrochloride 4 MG/2 ML VIAL IV ONE (10:45)
[2025-08-04] MEDS ORDERED: SODIUM CHLORIDE 0.9% 500 ML IV ONE ×3 (10:45→13:10)
[2025-08-04 11:06] LABS: MEAN CELL VOLUME 88.1 fl (80.0-94.0); MEAN CORPUSCULAR HGB 27.7 pg (27.0-31.0); MEAN PLATELET VOLUME 9.5 fl (9.6-12.3); NUCLEATED RED BLOOD CELL 0.0 % (0.0-0.0); NUCLEATED RED BLOOD CELL 0.0 10*3/uL (0.0-0.0); PLATELET COUNT AUTOMATED 400 10*3/uL (130-400); RED CELL DISTRI WIDTH 14.5 % (0-14.5)
[2025-08-04 11:07] LABS: MANUAL DIFF REFLEX YES
[2025-08-04 11:29] LABS: BUN 15 mg/dl (9-23)
[2025-08-04 11:33] LABS: BASOPHILS 3 % (0-1); PLATELET SUFFICIENCY NORMAL (NORMAL)
[2025-08-04 11:34] LABS: VACUOLATION OF NEUTROPHILS SLIGHT
[2025-08-04] MEDS ORDERED: SODIUM CHLORIDE 0.9% 100 ML BAG IV ONE (12:30)
[2025-08-04] MEDS ORDERED: IOHEXOL 350 MG/ML 100 ML VIAL IV ONE ×2 (12:30→12:58)
[2025-08-04] MEDS ORDERED: SODIUM CHLORIDE 0.9% 100 ML IV ONE (12:58)
[2025-08-04] MEDS ORDERED: Cefepime Hydrochloride 2 GM in SODIUM CHLORIDE 0.9% 50 ML IV ONE (13:50)
[2025-08-04] MEDS ORDERED: BISACODYL 10 MG SUPP R PRN (16:25)
[2025-08-04] MEDS ORDERED: ACETAMINOPHEN 325 MG TAB PO PRN (16:25)
[2025-08-04] MEDS ORDERED: Acetaminophen/Hydrocodone 5 MG/325 MG TABLET PO PRN (16:25)
[2025-08-04] MEDS ORDERED: Ondansetron Hydrochloride 4 MG/2 ML VIAL IV PRN (16:25)
[2025-08-04] MEDS ORDERED: BISACODYL 5 MG TAB PO PRN (16:25)
[2025-08-04] MEDS ORDERED: ACETAMINOPHEN 650 MG SUPP R PRN (16:25)
[2025-08-04] MEDS ORDERED: MIRALAX17 GM PO (16:30)
[2025-08-04] MEDS ORDERED: ANORO ELLIPTA1 EACH INH (16:31)
[2025-08-04] MEDS ORDERED: Albuterol Sulf/Ipratropium 3 ML VIAL NEB SCH (16:40)
[2025-08-04] MEDS ORDERED: HEPARIN SODIUM 250 ML IV SCH (16:40)
[2025-08-04] MEDS ORDERED: ASPIRIN, CHEWABLE 81 MG TAB PO ONE (17:15)
[2025-08-04 17:51] LABS: BILIRUBIN Negative (Negative); BLOOD Negative (Negative); CLARITY Clear (Clear); COLOR Yellow (Yellow); KETONE Negative (Negative); LEUKO ESTERASE Negative (Negative); NITRITE Negative (Negative); PH 6.5 (4.5-8.0); SPECIFIC GRAVITY >= 1.030 (1.001-1.030); UROBILINOGEN 1.0 E.U./dl (0.0-1.0)
[2025-08-04] MEDS ORDERED: FUROSEMIDE 20 MG/2 ML VIAL IV SCH (18:00)
[2025-08-04 18:04] LABS: BACTERIA TRACE; WBC 0-2 wbc/hpf (0-5)
[2025-08-04] MEDS ORDERED: ANORO ELLIPTA INH SCH (22:00)
[2025-08-04] MEDS ORDERED: ATORVASTATIN CALCIUM 80 MG TAB PO SCH (22:00)
[2025-08-04] MEDS ORDERED: GUAIFENESIN 600 MG TAB ER PO SCH (22:00)
[2025-08-04] MEDS ORDERED: Propafenone Hydrochloride 150 MG TAB PO SCH (22:00)
[2025-08-05] VITALS: BP 114/68
[2025-08-05] MEDS ORDERED: OMEPRAZOLE 20 MG CAP PO SCH (06:00)
[2025-08-05 06:04] LABS: MEAN CELL VOLUME 89.9 fl (80.0-94.0); MEAN CORPUSCULAR HGB 27.5 pg (27.0-31.0); MEAN PLATELET VOLUME 9.4 fl (9.6-12.3); NUCLEATED RED BLOOD CELL 0.0 % (0.0-0.0); NUCLEATED RED BLOOD CELL 0.0 10*3/uL (0.0-0.0); PLATELET COUNT AUTOMATED 337 10*3/uL (130-400); RED CELL DISTRI WIDTH 14.6 % (0-14.5)
[2025-08-05 06:12] LABS: MANUAL DIFF REFLEX YES
[2025-08-05 06:17] LABS: BUN 11 mg/dl (9-23); FREE T4 1.17 ng/dl (0.89-1.76); LDL CHOLESTEROL 37 mg/dL (9-159); SGPT/ALT 11 U/L (5-49)
[2025-08-05 06:44] LABS: BASOPHILS 1 % (0-1); PLATELET SUFFICIENCY NORMAL (NORMAL)
[2025-08-05 08:00] VITALS: BP 122/89
[2025-08-05 08:05] LABS: VITAMIN D, 25-HYDROXY 17.4 ng/mL (30-100)
[2025-08-05] MEDS ORDERED: ISOSORBIDE MONONITRATE 30 MG TAB PO SCH (10:00)
[2025-08-05] MEDS ORDERED: ATORVASTATIN CALCIUM 80 MG TAB PO SCH ×2 (10:00→22:00)
[2025-08-05] MEDS ORDERED: ASPIRIN, CHEWABLE 81 MG TAB PO SCH (10:00)
[2025-08-05] MEDS ORDERED: AZITHROMYCIN 250 ML IV SCH (10:00)
[2025-08-05] MEDS ORDERED: MAGNESIUM SULFATE 50 ML IV ONE (11:00)
[2025-08-05] MEDS ORDERED: POTASSIUM CHLORIDE 20 MEQ TAB PO ONE (11:00)
[2025-08-05 12:00] VITALS: BP 102/77
[2025-08-05] MEDS ORDERED: DILTIAZEM HCL IN NACL,ISO-OSM 100 ML IV SCH (12:00)
[2025-08-05 14:33] VITALS: BP 112/52
[2025-08-05 16:00] VITALS: BP 96/62
[2025-08-05 20:00] VITALS: BP 118/51
[2025-08-06] VITALS (9 sets, daily range): BP systolic 70–146; BP diastolic 38–69
[2025-08-06 06:19] LABS: BUN 15 mg/dl (9-23)
[2025-08-06 06:30] LABS: MANUAL DIFF REFLEX YES; MEAN CELL VOLUME 87.9 fl (80.0-94.0); MEAN CORPUSCULAR HGB 27.9 pg (27.0-31.0); MEAN PLATELET VOLUME 9.6 fl (9.6-12.3); NUCLEATED RED BLOOD CELL 0.0 % (0.0-0.0); NUCLEATED RED BLOOD CELL 0.0 10*3/uL (0.0-0.0); PLATELET COUNT AUTOMATED 354 10*3/uL (130-400); RED CELL DISTRI WIDTH 14.7 % (0-14.5)
[2025-08-06 07:04] LABS: BASOPHILS 1 % (0-1); PLATELET SUFFICIENCY NORMAL (NORMAL)
[2025-08-06] MEDS ORDERED: POTASSIUM CHLORIDE 20 MEQ TAB PO ONE (07:20)
[2025-08-06] MEDS ORDERED: SODIUM CHLORIDE 0.9% 500 ML IV ONE ×2 (09:50→10:12)
[2025-08-06] MEDS ORDERED: ANORO ELLIPTA INH SCH (10:00)
[2025-08-07] VITALS: BP 134/64
[2025-08-07 03:36] VITALS: BP 132/44
[2025-08-07] MEDS ORDERED: ELIQUIS2.5 M1 PO (07:19)
[2025-08-07 07:35] LABS: BASO # 0.1 10*3/uL (0.0-0.1); BASO % 0.5 % (0.0-1.0); EOS # 0.4 10*3/uL (0.0-0.4); EOS % 4.6 % (1.0-4.0); MEAN CELL VOLUME 87.6 fl (80.0-94.0); MEAN CORPUSCULAR HGB 27.7 pg (27.0-31.0); MEAN PLATELET VOLUME 9.2 fl (9.6-12.3); MONO # 1.2 10*3/uL (0.1-1.0); MONO % 13.0 % (3.0-9.0); NEUT # 6.5 10*3/uL (2.3-7.9); NEUT % 68.3 % (47.0-73.0); NUCLEATED RED BLOOD CELL 0.0 % (0.0-0.0); NUCLEATED RED BLOOD CELL 0.0 10*3/uL (0.0-0.0); PLATELET COUNT AUTOMATED 396 10*3/uL (130-400); RED CELL DISTRI WIDTH 14.4 % (0-14.5)
[2025-08-07 07:54] LABS: BUN 11 mg/dl (9-23)
[2025-08-07 08:00] VITALS: BP 134/67
[2025-08-07] MEDS ORDERED: VIBRAMYCIN100 MG PO (11:35)
[2025-08-07] MEDS ORDERED: MUCUS RELIEF E600 MG PO (11:43)
[2025-08-07 12:00] VITALS: BP 116/80
== END 2025-08-07 13:00 | disposition home or self-care (01) | DRG 871 ==
LOC: ED 10:11 → 5E 15:06 → EDHOLD 15:06 → 5E 15:49
PROVIDERS: Registered Nurse; Student in an Organized Health Care Education/Training Program; ADMIT Internal Medicine; ATTEND Internal Medicine
DX: A41.9 Sepsis, unspecified organism (principal); I50.33 Acute on chronic diastolic (congestive) heart failure; J15.69 Pneumonia due to other Gram-negative bacteria; I48.92 Unspecified atrial flutter; J91.8 Pleural effusion in other conditions classified elsewhere; I48.21 Permanent atrial fibrillation; J44.0 Chronic obstructive pulmonary disease with (acute) lower respiratory infection; E78.5 Hyperlipidemia, unspecified; I25.10 Atherosclerotic heart disease of native coronary artery without angina pectoris; Z66 Do not resuscitate; K21.9 Gastro-esophageal reflux disease without esophagitis; M81.0 Age-related osteoporosis without current pathological fracture; R65.20 Severe sepsis without septic shock; E87.6 Hypokalemia; D50.9 Iron deficiency anemia, unspecified; R73.9 Hyperglycemia, unspecified; R91.8 Other nonspecific abnormal finding of lung field; Z88.8 Allergy status to other drugs, medicaments and biological substances; Z79.899 Other long term (current) drug therapy; Z79.01 Long term (current) use of anticoagulants; Z79.2 Long term (current) use of antibiotics; Z95.5 Presence of coronary angioplasty implant and graft; Z87.891 Personal history of nicotine dependence; Z99.81 Dependence on supplemental oxygen; Z79.82 Long term (current) use of aspirin; Z82.49 Family history of ischemic heart disease and other diseases of the circulatory system; Z82.3 Family history of stroke; Z80.8 Family history of malignant neoplasm of other organs or systems; Z85.118 Personal history of other malignant neoplasm of bronchus and lung